=== PATIENT | female | born 1955 | race Caucasian/White ===

== ENCOUNTER 2018-10-15 13:28 | Emergency (ER) | payer OTHER ==
[~2018-10-15] VITALS: Ht 152.4 cm; Wt 69.9 kg
[~2018-10-15 13:28] MED LIST: DICY20TA PO; PHENERGAN25 MG PO; PROTONIX40 MG PO; ZANTAC300 MG PO; ZOFRAN4 MG PO
[2018-10-15] MEDS ORDERED: SYNTHROID200 MCG (13:50)
== END 2018-10-15 21:04 | disposition home or self-care (01) ==
LOC: ER 13:28
DX: K52.89 Other specified noninfective gastroenteritis and colitis (principal)

== ENCOUNTER 2019-07-03 19:23 | Emergency (ER) | payer OTHER ==
[~2019-07-03] VITALS: Ht 154.9 cm; Wt 70.8 kg
[~2019-07-03 19:23] MED LIST changes: +SYNTHROID200 MCG
[2019-07-03] MEDS ORDERED: PEPCID40 MG (20:19)
[2019-07-04] MEDS ORDERED: INTESTINEX680 M1 PO (01:33)
[2019-07-04] MEDS ORDERED: PEPCID40 MG PO (01:33)
[2019-07-04] MEDS ORDERED: SYNTHROID200 MCG PO (01:33)
== END 2019-07-04 01:42 | disposition home or self-care (01) ==
LOC: ER 19:23
DX: K52.9 Noninfective gastroenteritis and colitis, unspecified (principal)

== ENCOUNTER 2020-08-19 10:28 | Emergency (ER) | payer OTHER ==
[~2020-08-19] VITALS: Ht 132.1 cm; Wt 68.0 kg
[~2020-08-19 10:28] MED LIST changes: +INTESTINEX680 M1 PO; +PEPCID40 MG; +PEPCID40 MG PO; +SYNTHROID200 MCG PO
[2020-08-19] MEDS ORDERED: INTESTINEX680 M2 PO (17:23)
[2020-08-19] MEDS ORDERED: PROTONIX20 MG PO (17:23)
[2020-08-19] MEDS ORDERED: CARAFATE1 GM PO (17:23)
[2020-08-19] MEDS ORDERED: PEPCID AC20 MG PO (17:23)
[2020-08-19] MEDS ORDERED: NITROFURANTOIN100 MG PO (17:23)
== END 2020-08-19 18:05 | disposition home or self-care (01) ==
LOC: ER 10:28
DX: K29.60 Other gastritis without bleeding (principal); N39.0 Urinary tract infection, site not specified; R10.13 Epigastric pain; B96.4 Proteus (mirabilis) (morganii) as the cause of diseases classified elsewhere

== ENCOUNTER 2020-08-23 11:08 | Emergency (ER) | payer OTHER ==
[~2020-08-23] VITALS: Ht 149.9 cm; Wt 65.8 kg
[~2020-08-23 11:08] MED LIST changes: +CARAFATE1 GM PO; +INTESTINEX680 M2 PO; +NITROFURANTOIN100 MG PO; +PEPCID AC20 MG PO; +PROTONIX20 MG PO
== END 2020-08-23 21:07 | disposition home or self-care (01) ==
LOC: ER 11:08
DX: N39.0 Urinary tract infection, site not specified (principal); R10.31 Right lower quadrant pain

== ENCOUNTER 2023-05-06 16:36 | Emergency (ER) | payer OTHER ==
[~2023-05-06] VITALS: Ht 165.1 cm; Wt 72.6 kg
== END 2023-05-06 18:31 | disposition home or self-care (01) ==
LOC: ER 16:36
DX: B00.89 Other herpesviral infection (principal); Z88.6 Allergy status to analgesic agent

== ENCOUNTER 2024-03-12 22:38 | Emergency (ER) | payer OTHER ==
[~2024-03-12] VITALS: Ht 165.1 cm; Wt 81.6 kg
[2024-03-13] MEDS ORDERED: KETOROLAC TROMETHAMINE 60 MG VIAL IM STA (01:10)
[2024-03-13] MEDS ORDERED: LORazepam 2 MG/ML VIAL IM STA (01:11)
[2024-03-13 01:47] LABS: HEMATOCRIT 32.9 % (36.0-45.00); MEAN CELL VOLUME 97.3 fL (80.00-100.00); MEAN CORPUSCULAR HGB CONC 33.9 g/dl (32.0-36.0); PLATELET COUNT 180 K/uL (150-450); RED BLOOD COUNT 3.38 M/uL (4.00-6.00)
[2024-03-13 01:48] LABS: HEMOGLOBIN 11.1 g/dL (12.0-15.00); MEAN CORPUSCULAR HEMOGLOBIN 32.8 pg (27.00-32.0)
[2024-03-13 02:14] LABS: ALBUMIN 3.7 gm/dL (3.4-5.0); BILIRUBIN TOTAL 0.44 mg/dL (0.3-1.2); CALCIUM 10.6 mg/dL (8.5-10.1); CREATININE SERUM 0.8 mg/dL (0.55-1.02); GFR 71.76; POTASSIUM 3.16 mEq/L (3.5-5.1); TOTAL PROTEIN 8.7 gm/dL (6.4-8.2)
[2024-03-13] MEDS ORDERED: DIPHENHYDRAMINE HCL 50 MG/ML VIAL 1ML IM ONE (06:00)
[2024-03-13] MEDS ORDERED: HALOPERIDOL LACTATE 5 MG/ML AMPUL IM ONE (06:00)
== END 2024-03-13 13:24 | disposition home or self-care (01) ==
LOC: ER
DX: S10.83XA Contusion of other specified part of neck, initial encounter (principal); Y04.2XXA Assault by strike against or bumped into by another person, initial encounter; Y93.89 Activity, other specified; Y92.018 Other place in single-family (private) house as the place of occurrence of the external cause; S50.11XA Contusion of right forearm, initial encounter; S80.02XA Contusion of left knee, initial encounter; S80.01XA Contusion of right knee, initial encounter; S20.223A Contusion of bilateral back wall of thorax, initial encounter; Z88.8 Allergy status to other drugs, medicaments and biological substances

== ENCOUNTER 2024-06-18 07:34 | Outpatient (CLI) | payer OTHER | END 2024-06-18 07:43 | disposition home or self-care (01) | LOC: MRI 07:34 | PROVIDERS: ATTEND Surgery | DX: K80.41 Calculus of bile duct with cholecystitis, unspecified, with obstruction (principal) | CPT/HCPCS: 74181 ==

== ENCOUNTER 2024-06-25 13:21 | Emergency (ER) | payer OTHER ==
[~2024-06-25] VITALS: Ht 162.6 cm; Wt 61.2 kg
[2024-06-25] MEDS ORDERED: PROTONIX40 M1 PO (13:54)
[2024-06-25] MEDS ORDERED: FAMOTIDINE/PF 20 MG/2 ML VIAL IV ONE (15:00)
[2024-06-25] MEDS ORDERED: FAMOtidine 200mg/20ml VIAL ONE (16:16)
[2024-06-25] MEDS ORDERED: ACETAMINOPHEN 500 MG GEL..CAP PO ONE (16:39)
[2024-06-25] MEDS ORDERED: ACETAMINOPHEN 500 MG GEL..CAP PO STA (16:42)
[2024-06-25 16:45] LABS: HEMATOCRIT 31.6 % (36.0-45.00); HEMOGLOBIN 10.6 g/dL (12.0-15.00); MEAN CELL VOLUME 101.9 fL (80.00-100.00); MEAN CORPUSCULAR HEMOGLOBIN 34.1 pg (27.00-32.0); MEAN CORPUSCULAR HGB CONC 33.5 g/dl (32.0-36.0); PLATELET COUNT 174 K/uL (150-450); RED CELL DISTRIBUTION WIDTH 12.8 % (11.5-14.5)
[2024-06-25] MEDS ORDERED: KETOROLAC TROMETHAMINE 60 MG VIAL IM ONE ×2 (17:30→18:04)
[2024-06-25 17:35] LABS: BILIRUBIN TOTAL 0.52 mg/dL (0.3-1.2); CALCIUM 10.8 mg/dL (8.5-10.1); CREATININE SERUM 0.66 mg/dL (0.55-1.02); GFR 89.6; GLOBULINA 4.6 G/DL (2.4-3.5); POTASSIUM 3.88 mEq/L (3.5-5.1); TOTAL PROTEIN 8.6 gm/dL (6.4-8.2)
[2024-06-25 17:43] LABS: TSH 0.023 uIU/mL (0.358-3.74)
== END 2024-06-25 19:20 | disposition home or self-care (01) ==
LOC: ER 13:22
PROVIDERS: Nurse Practitioner Family
DX: R53.81 Other malaise (principal); E05.90 Thyrotoxicosis, unspecified without thyrotoxic crisis or storm; R51.9 Headache, unspecified; Z20.822 Contact with and (suspected) exposure to COVID-19; E03.8 Other specified hypothyroidism; Z88.5 Allergy status to narcotic agent; Z88.6 Allergy status to analgesic agent

== ENCOUNTER 2024-08-15 09:05 | Outpatient (CLI) | payer OTHER ==
[~2024-08-15 09:05] MED LIST changes: +PROTONIX40 M1 PO
== END 2024-08-15 09:17 | disposition home or self-care (01) ==
LOC: SONOGRAMA 09:05
PROVIDERS: ATTEND Internal Medicine
DX: E04.2 Nontoxic multinodular goiter (principal); C73 Malignant neoplasm of thyroid gland; R22.1 Localized swelling, mass and lump, neck

== ENCOUNTER 2024-08-15 11:11 | Emergency (ER) | payer OTHER ==
[~2024-08-15] VITALS: Ht 152.4 cm; Wt 61.2 kg
[2024-08-15 11:27] VITALS: BP 126/79; O2SAT 96
[2024-08-15] MEDS ORDERED: FAMOTIDINE/PF 20 MG/2 ML VIAL IV PUSH STA ×2 (12:33→14:52)
[2024-08-15] MEDS ORDERED: FAMOTIDINE/PF 20 MG/2 ML VIAL ONE (12:39)
[2024-08-15 13:04] LABS: HEMATOCRIT 28.7 % (36.0-45.00); MEAN CELL VOLUME 98.1 fL (80.00-100.00); MEAN CORPUSCULAR HGB CONC 34.5 g/dl (32.0-36.0); RED BLOOD COUNT 2.93 M/uL (4.00-6.00)
[2024-08-15 13:14] LABS: HEMOGLOBIN 9.9 g/dL (12.0-15.00); MEAN CORPUSCULAR HEMOGLOBIN 33.7 pg (27.00-32.0); PLATELET COUNT 124 K/uL (150-450)
[2024-08-15 13:34] LABS: CALCIUM 10.8 mg/dL (8.5-10.1); CREATININE SERUM 0.87 mg/dL (0.55-1.02); GFR 65.14; POTASSIUM 3.96 mEq/L (3.5-5.1)
[2024-08-15 13:56] LABS: PH,URINE 7.5 (5.0-8.0); URINE APPEARANCE Clear; URINE BILIRRUBIN Negative (NEGATIVE); URINE BLOOD Negative; URINE COLOR Yellow; URINE GLUCOSE Negative (NEGATIVE); URINE KETONE Negative (NEGATIVE); URINE LEUKOCYTE Moderate; URINE NITRATE Negative; URINE PROTEIN Negative (NEGATIVE); URINE UROBILINOGEN 0.2 E.U./dl
[2024-08-15 13:57] LABS: URINE BACTERIA 41.5 uL (0.0-1933); URINE EPITHELIAL CELLS 4.7 uL (0.0-38.8); URINE RBC 2.7 uL (0.0-20.8); URINE WBC 31.9 uL (0.0-23.2)
[2024-08-15 13:58] LABS: URINE CAST 0.15 uL (0.0-1.40)
[2024-08-15] MEDS ORDERED: ORPHENADRINE CITRATE 30 MG/ML AMPUL IM STA (14:53)
[2024-08-15] MEDS ORDERED: ORPHENADRINE CITRATE 30 MG/ML AMPUL ONE (15:03)
== END 2024-08-15 15:08 | disposition home or self-care (01) ==
LOC: ER 11:12
PROVIDERS: General Practice
DX: D61.818 Other pancytopenia (principal); Z88.8 Allergy status to other drugs, medicaments and biological substances

== ENCOUNTER 2024-08-16 07:26 | Emergency (ER) | payer OTHER ==
[~2024-08-16] VITALS: Ht 160 cm; Wt 71.7 kg
[2024-08-16] MEDS ORDERED: 0.9 % SODIUM CHLORIDE 1,000 ML IV SCH (08:30)
[2024-08-16 09:01] LABS: HEMATOCRIT 29.4 % (36.0-45.00); MEAN CORPUSCULAR HEMOGLOBIN 33.5 pg (27.00-32.0); MEAN CORPUSCULAR HGB CONC 34.2 g/dl (32.0-36.0)
[2024-08-16 09:02] LABS: PLATELET COUNT 128 K/uL (150-450)
[2024-08-16] MEDS ORDERED: KETOROLAC TROMETHAMINE 30 MG VIAL ONE (09:09)
[2024-08-16] MEDS ORDERED: KETOROLAC TROMETHAMINE 30 MG VIAL IV ONE (09:15)
[2024-08-16 09:24] LABS: CALCIUM 11.2 mg/dL (8.5-10.1); CREATININE SERUM 0.88 mg/dL (0.55-1.02); GFR 64.29; POTASSIUM 3.57 mEq/L (3.5-5.1)
[2024-08-16 09:37] LABS: URINE APPEARANCE Cloudy; URINE BILIRRUBIN Negative (NEGATIVE); URINE BLOOD Negative; URINE COLOR Yellow; URINE GLUCOSE Negative (NEGATIVE); URINE KETONE Negative (NEGATIVE); URINE LEUKOCYTE Small; URINE NITRATE Negative; URINE PROTEIN Negative (NEGATIVE); URINE UROBILINOGEN 0.2 E.U./dl
[2024-08-16 09:39] LABS: URINE EPITHELIAL CELLS 2.1 uL (0.0-38.8); URINE WBC 9.7 uL (0.0-23.2)
[2024-08-16 09:46] LABS: URINE RBC 1.6 uL (0.0-20.8)
== END 2024-08-16 14:48 | disposition home or self-care (01) ==
LOC: ER 07:26
PROVIDERS: Emergency Medicine
DX: D61.818 Other pancytopenia (principal); R10.9 Unspecified abdominal pain; E03.8 Other specified hypothyroidism; Z88.5 Allergy status to narcotic agent; Z88.6 Allergy status to analgesic agent

== ENCOUNTER 2024-11-15 10:24 | Inpatient (IN) | payer OTHER ==
[~2024-11-15] VITALS: Ht 157.5 cm; Wt 59.0 kg
--- NOTE | 2024-11-15 10:32 | NUR ---
SE RECIBE PTE ALERTA Y ORIENTADA X3 EN AMBULANCIA LA CUAL REFIERE DOLRO ABDOMIANL Y DIAREA DESDE FLORENCIO. PTE CANALIZADA EN BRAZO DERECHOI CON ANGIO #18 CON R/L DE AMBULANCIA. SE MIDEN S/V Y SE UBICA.
[2024-11-15] MEDS ORDERED: FAMOTIDINE/PF 20 MG in 0.9 % SODIUM CHLORIDE 8 ML IV PUSH STA (10:49)
[2024-11-15] MEDS ORDERED: MEPERIDINE HCL 25 MG/ML AMPUL IV ONE (11:00)
--- NOTE | 2024-11-15 11:20 | NUR ---
CANDY CHRISTOPHER EDUCA A PTE SOBRE TX A RECIBIR EN EL AREA LA MISMA REFIERE ENTENDER. CANALIZA PTE Y SE COLOCAN MEDICAMENTOS VIANEY ORDEN MEDICA Y SE EDISON PTE BAJO TX EN LA ESPERA DE RESULTADOS.
[2024-11-15] MEDS ORDERED: 0.9 % SODIUM CHLORIDE 1,000 ML IV SCH ×2 (12:00→19:30)
[2024-11-15 12:22] LABS: URINE APPEARANCE Clear; URINE BILIRRUBIN Negative (NEGATIVE); URINE BLOOD Negative; URINE COLOR Yellow; URINE GLUCOSE Negative (NEGATIVE); URINE KETONE Negative (NEGATIVE); URINE LEUKOCYTE Moderate; URINE NITRATE Negative; URINE PROTEIN Negative (NEGATIVE); URINE UROBILINOGEN 0.2 E.U./dl
[2024-11-15 12:23] LABS: URINE BACTERIA 80.6 uL (0.0-1933); URINE EPITHELIAL CELLS 4.7 uL (0.0-38.8); URINE WBC 20.5 uL (0.0-23.2)
[2024-11-15 12:32] LABS: HEMATOCRIT 23.9 % (36.0-45.00); MEAN CELL VOLUME 101.4 fL (80.00-100.00); MEAN CORPUSCULAR HEMOGLOBIN 34.3 pg (27.00-32.0); MEAN CORPUSCULAR HGB CONC 33.8 g/dl (32.0-36.0); PLATELET COUNT 130 K/uL (150-450); RED BLOOD COUNT 2.36 M/uL (4.00-6.00); RED CELL DISTRIBUTION WIDTH 16.3 % (11.5-14.5)
[2024-11-15 12:33] LABS: URINE RBC 1.6 uL (0.0-20.8)
[2024-11-15 12:33] LABS: HEMOGLOBIN 8.1 g/dL (12.0-15.00)
[2024-11-15 12:45] LABS: CALCIUM 9.2 mg/dL (8.5-10.1); CREATININE SERUM 0.66 mg/dL (0.55-1.02); GFR 89.33; POTASSIUM 3.07 mEq/L (3.5-5.1)
[2024-11-15] MEDS ORDERED: MEPERIDINE HCL/PF 25 MG/ML VIAL IV ONE (15:00)
[2024-11-15] MEDS ORDERED: KETOROLAC TROMETHAMINE 30 MG VIAL IM ONE (18:30)
[2024-11-15] MEDS ORDERED: ORPHENADRINE CITRATE 100 MG TABLET PO SCH (19:36)
[2024-11-15] MEDS ORDERED: ACETAMINOPHEN 500 MG GEL..CAP PO PRN (19:45)
[2024-11-15] MEDS ORDERED: POTASSIUM CHLORIDE 20MEQ/100ML H2O PB IV ONE (19:45)
[2024-11-15 20:27] VITALS: BP 163/79
[2024-11-15] MEDS ORDERED: ONDANSETRON HCL 4 MG in 0.9 % SODIUM CHLORIDE 50 ML IV PRN (21:00)
[2024-11-15 22:23] LABS: INR 1.05; PARTIAL THROMBOPLASTIN TIME 23.4 SECONDS (22.0-34.0); PROTHROMBIN TIME 11.4 SECONDS (9.0-11.5)
[2024-11-15 23:28] VITALS: BP 130/63; O2SAT 99
[2024-11-16] MEDS ORDERED: TRAMADOL HCL 50 MG TABLET PO ONE (02:15)
[2024-11-16 02:50] VITALS: BP 136/72; O2SAT 96
[2024-11-16] MEDS ORDERED: LEVOTHYROXINE SODIUM 125 MCG TABLET PO SCH (06:00)
[2024-11-16] MEDS ORDERED: IRON FUM,PS/FOLIC/BCOMP,C NO.9 1 CAP CAPSULE PO SCH (09:00)
[2024-11-16] MEDS ORDERED: PANTOPRAZOLE SODIUM 40 MG/VIAL VIAL IV SCH (09:00)
[2024-11-16 10:13] VITALS: BP 120/76; O2SAT 95
[2024-11-16] MEDS ORDERED: KETOROLAC TROMETHAMINE 30 MG VIAL IM PRN (10:30)
[2024-11-16] MEDS ORDERED: KETOROLAC TROMETHAMINE 30 MG VIAL IM STA (10:30)
[2024-11-16 16:36] LABS: ob NEGATIVE (NEGATIVE)
[2024-11-16 16:49] LABS: HEMOGLOBIN 10.7 g/dL (12.0-15.00); MEAN CELL VOLUME 98.5 fL (80.00-100.00); MEAN CORPUSCULAR HEMOGLOBIN 32.9 pg (27.00-32.0); MEAN CORPUSCULAR HGB CONC 33.5 g/dl (32.0-36.0); PLATELET COUNT 157 K/uL (150-450); RED BLOOD COUNT 3.25 M/uL (4.00-6.00); RED CELL DISTRIBUTION WIDTH 17.8 % (11.5-14.5)
[2024-11-16 17:53] VITALS: BP 126/72
[2024-11-17 02:20] VITALS: BP 132/72; O2SAT 95
[2024-11-17 08:25] LABS: ALBUMIN 3.5 gm/dL (3.4-5.0); BILIRUBIN TOTAL 0.67 mg/dL (0.3-1.2); CALCIUM 10.4 mg/dL (8.5-10.1); CREATININE SERUM 0.69 mg/dL (0.55-1.02); GFR 84.86; GLOBULINA 3.5 G/DL (2.4-3.5); POTASSIUM 3.92 mEq/L (3.5-5.1)
[2024-11-17 08:47] LABS: HEMATOCRIT 30.8 % (36.0-45.00); HEMOGLOBIN 10.4 g/dL (12.0-15.00); MEAN CELL VOLUME 98.5 fL (80.00-100.00); MEAN CORPUSCULAR HEMOGLOBIN 33.3 pg (27.00-32.0); MEAN CORPUSCULAR HGB CONC 33.9 g/dl (32.0-36.0); PLATELET COUNT 166 K/uL (150-450); RED BLOOD COUNT 3.13 M/uL (4.00-6.00); RED CELL DISTRIBUTION WIDTH 17.8 % (11.5-14.5)
[2024-11-17 09:29] VITALS: BP 150/83; O2SAT 97
== END 2024-11-17 12:25 | disposition home or self-care (01) | DRG 812 ==
LOC: ER 10:24 → MEDJ 21:03
PROVIDERS: Emergency Medicine; General Practice; Internal Medicine; ADMIT Internal Medicine; ATTEND Internal Medicine
PROC: 30233N1 Transfusion of Nonautologous Red Blood Cells into Peripheral Vein, Percutaneous Approach (ICD-10-PCS; principal; 2024-11-16)
DX: D64.9 Anemia, unspecified (principal); K52.89 Other specified noninfective gastroenteritis and colitis; E03.9 Hypothyroidism, unspecified; E87.6 Hypokalemia

== ENCOUNTER 2025-01-17 14:35 | Emergency (ER) | payer OTHER ==
[~2025-01-17] VITALS: Ht 165.1 cm; Wt 56.7 kg
[2025-01-17] MEDS ORDERED: DEXAMETHASONE SODIUM PHOSPHATE 4 MG/ML VIAL ONE (16:21)
[2025-01-17] MEDS ORDERED: KETOROLAC TROMETHAMINE 30 MG VIAL ONE (16:21)
[2025-01-17] MEDS ORDERED: FAMOTIDINE/PF 20 MG/2 ML VIAL ONE (16:22)
[2025-01-17] MEDS ORDERED: DEXAMETHASONE SODIUM PHOSPHATE 4 MG/ML VIAL IV ONE (16:30)
[2025-01-17] MEDS ORDERED: KETOROLAC TROMETHAMINE 30 MG VIAL IV ONE (16:30)
[2025-01-17] MEDS ORDERED: FAMOTIDINE/PF 20 MG/2 ML VIAL IV ONE (16:30)
[2025-01-17 17:09] LABS: URINE APPEARANCE Clear; URINE BILIRRUBIN Negative (NEGATIVE); URINE BLOOD Negative; URINE COLOR Yellow; URINE GLUCOSE Negative (NEGATIVE); URINE KETONE Negative (NEGATIVE); URINE LEUKOCYTE Moderate; URINE NITRATE Negative; URINE PROTEIN Trace (NEGATIVE); URINE UROBILINOGEN 0.2 E.U./dl
[2025-01-17 17:10] LABS: URINE EPITHELIAL CELLS 16.5 uL (0.0-38.8); URINE RBC 3.5 uL (0.0-20.8); URINE WBC 38.5 uL (0.0-23.2)
[2025-01-17 17:14] LABS: HEMATOCRIT 27.8 % (36.0-45.00); HEMOGLOBIN 9.4 g/dL (12.0-15.00); MEAN CORPUSCULAR HEMOGLOBIN 33.3 pg (27.00-32.0); PLATELET COUNT 189 K/uL (150-450); RED BLOOD COUNT 2.84 M/uL (4.00-6.00); RED CELL DISTRIBUTION WIDTH 15.8 % (11.5-14.5)
[2025-01-17 17:14] LABS: URINE CAST 0.14 uL (0.0-1.40)
[2025-01-17 17:17] LABS: ALBUMIN 3.7 gm/dL (3.4-5.0); BILIRUBIN TOTAL 0.71 mg/dL (0.3-1.2); CALCIUM 10.8 mg/dL (8.5-10.1); CREATININE SERUM 0.64 mg/dL (0.55-1.02); GFR 92.56; GLOBULINA 4.4 G/DL (2.4-3.5); POTASSIUM 3.11 mEq/L (3.5-5.1); TOTAL PROTEIN 8.1 gm/dL (6.4-8.2)
[2025-01-17] MEDS ORDERED: NORFLEX100MG PO (18:07)
[2025-01-17] MEDS ORDERED: DICLOFENAC SODI75 MG PO (18:07)
== END 2025-01-17 18:30 ==
LOC: ER 14:38
PROVIDERS: General Practice
DX: G89.11 Acute pain due to trauma (principal); M53.3 Sacrococcygeal disorders, not elsewhere classified; E03.8 Other specified hypothyroidism; Z88.8 Allergy status to other drugs, medicaments and biological substances

== ENCOUNTER → 2025-01-25 | Emergency (ER) | payer OTHER ==
[~2025-01-25] VITALS: Ht 154.9 cm; Wt 56.7 kg
[~2025-01-25] MED LIST changes: +DICLOFENAC SODI75 MG PO; +KETOROLAC TROMETHAMINE 60 MG VIAL IM ONE; +LORazepam 1 MG TABLET PO ONE; +NORFLEX100MG PO; +OxyCODONE HCL/APAP UD (PERCOCET) PO ONE
[2025-01-25 11:58] LABS: HEMATOCRIT 26.7 % (36.0-45.00); HEMOGLOBIN 9.4 g/dL (12.0-15.00); MEAN CELL VOLUME 98.4 fL (80.00-100.00); MEAN CORPUSCULAR HEMOGLOBIN 34.6 pg (27.00-32.0); MEAN CORPUSCULAR HGB CONC 35.2 g/dl (32.0-36.0); PLATELET COUNT 186 K/uL (150-450); RED BLOOD COUNT 2.72 M/uL (4.00-6.00); RED CELL DISTRIBUTION WIDTH 15.4 % (11.5-14.5)
[2025-01-25 13:40] LABS: URINE APPEARANCE Clear; URINE BILIRRUBIN Negative (NEGATIVE); URINE BLOOD Negative; URINE COLOR Yellow; URINE GLUCOSE Negative (NEGATIVE); URINE KETONE Negative (NEGATIVE); URINE LEUKOCYTE Negative; URINE NITRATE Negative; URINE PROTEIN Trace (NEGATIVE); URINE UROBILINOGEN 0.2 E.U./dl
[2025-01-25 13:44] LABS: URINE EPITHELIAL CELLS 2.3 uL (0.0-38.8); URINE RBC 5.1 uL (0.0-20.8); URINE WBC 5.2 uL (0.0-23.2)
== END | disposition home or self-care (01) ==
LOC: ER 09:53
PROVIDERS: Emergency Medicine
DX: M54.50 Low back pain, unspecified (principal); Z88.8 Allergy status to other drugs, medicaments and biological substances
CPT/HCPCS: 72158

== ENCOUNTER → 2025-02-05 | Emergency (ER) | payer OTHER ==
[~2025-02-05] VITALS: Ht 160 cm; Wt 56.7 kg
[~2025-02-05] MED LIST changes: -KETOROLAC TROMETHAMINE 60 MG VIAL IM ONE; -LORazepam 1 MG TABLET PO ONE; -OxyCODONE HCL/APAP UD (PERCOCET) PO ONE
== END | disposition left against medical advice (07) ==
LOC: ER 03:59
DX: Z53.21 Procedure and treatment not carried out due to patient leaving prior to being seen by health care provider (principal)

== ENCOUNTER → 2025-02-22 | Emergency (ER) | payer OTHER | END | disposition left against medical advice (07) | LOC: ER 20:39 | DX: Z53.21 Procedure and treatment not carried out due to patient leaving prior to being seen by health care provider (principal) ==

== ENCOUNTER 2025-03-18 14:14 | Emergency (ER) | payer OTHER ==
[~2025-03-18] VITALS: Ht 154.9 cm; Wt 63.5 kg
[2025-03-18] MEDS ORDERED: FAMOTIDINE/PF 20 MG/2 ML VIAL ONE (16:23)
[2025-03-18] MEDS ORDERED: FAMOtidine 10 MG/ML (4ML VIAL) IV ONE (16:30)
[2025-03-18 16:56] LABS: HEMATOCRIT 30.8 % (36.0-45.00); HEMOGLOBIN 10.4 g/dL (12.0-15.00); MEAN CELL VOLUME 103.2 fL (80.00-100.00); MEAN CORPUSCULAR HEMOGLOBIN 34.8 pg (27.00-32.0); MEAN CORPUSCULAR HGB CONC 33.7 g/dl (32.0-36.0); PLATELET COUNT 206 K/uL (150-450); RED BLOOD COUNT 2.99 M/uL (4.00-6.00); RED CELL DISTRIBUTION WIDTH 14.1 % (11.5-14.5)
[2025-03-18 17:12] LABS: CALCIUM 11.2 mg/dL (8.5-10.1); CREATININE SERUM 0.69 mg/dL (0.55-1.02); GFR 84.86; POTASSIUM 3.56 mEq/L (3.5-5.1)
[2025-03-18] MEDS ORDERED: KETOROLAC TROMETHAMINE 30 MG VIAL IM ONE (17:45)
[2025-03-18] MEDS ORDERED: KETOROLAC TROMETHAMINE 30 MG VIAL ONE (17:55)
== END 2025-03-18 19:15 | disposition home or self-care (01) ==
LOC: ER 14:15
PROVIDERS: General Practice
DX: K29.70 Gastritis, unspecified, without bleeding (principal); M25.561 Pain in right knee; M25.551 Pain in right hip; E03.8 Other specified hypothyroidism; Z88.5 Allergy status to narcotic agent

== ENCOUNTER 2025-03-25 08:19 | Outpatient (CLI) | payer OTHER | END 2025-03-25 08:20 | disposition home or self-care (01) | LOC: NUCLEAR 08:19 | DX: C90.00 Multiple myeloma not having achieved remission (principal) ==

== ENCOUNTER 2025-06-19 09:07 | Outpatient (CLI) | payer OTHER | END 2025-06-19 09:18 | disposition home or self-care (01) | LOC: MRI 09:07 | DX: C90.00 Multiple myeloma not having achieved remission (principal) | CPT/HCPCS: 72158; Q9965 ==

== ENCOUNTER 2025-06-25 16:15 | Emergency (ER) | payer OTHER ==
[~2025-06-25] VITALS: Ht 162.6 cm; Wt 68.0 kg
[2025-06-25] MEDS ORDERED: 0.9 % SODIUM CHLORIDE 1,000 ML IV STA (18:48)
[2025-06-25] MEDS ORDERED: KETOROLAC TROMETHAMINE 30 MG VIAL IV STA (18:50)
[2025-06-25] MEDS ORDERED: ONDANSETRON HCL 2 MG/ML VIAL IV STA (18:52)
[2025-06-25 19:29] LABS: BASO % 0.8 % (0.1-1.2); EOS # 0.10 (0.04-0.54); EOS % 2.6 % (0.7-7.0); LYMPH # 0.93 (1.18-3.74); LYMPH % 24.6 % (19.3-53.1); MEAN PLATELET VOLUME 9.60 fl (9.4-12.4); MONO # 0.50 (0.24-0.82); NEUT # 2.22 (1.56-6.13); NEUT % 58.8 % (34.0-71.1); RED CELL DISTRIBUTION WIDTH 11.9 % (11.6-14.4)
[2025-06-25 19:52] LABS: INR 1.0
[2025-06-25 19:59] LABS: MONO % 13.2 % (4.7-12.5)
[2025-06-25 20:05] LABS: ALT/SGPT 21.0 U/L (12-78); AST/SGOT 10.0 U/L (15-37); BILIRUBIN TOTAL 0.6 mg/dL (0.3-1.2); BUN CREA RATIO 10.0 (7.0-25.0); CREATININE SERUM 0.62 mg/dL (0.55-1.02); GFR 96.01; GLOBULINA 3.1 G/DL (2.4-3.5); GLUCOSE FASTING 91.0 mg/dL (65-100); OSMOLALITY SERUM 286.0 MOSM/KG (275-295)
== END 2025-06-25 22:41 | disposition home or self-care (01) ==
LOC: ER 16:15
DX: K52.1 Toxic gastroenteritis and colitis (principal); T45.1X5A Adverse effect of antineoplastic and immunosuppressive drugs, initial encounter; Y92.89 Other specified places as the place of occurrence of the external cause; Z88.8 Allergy status to other drugs, medicaments and biological substances; C90.00 Multiple myeloma not having achieved remission
CPT/HCPCS: 74176; 96365; 96366; 99283; J1885; J2405; J3490

== ENCOUNTER 2025-07-13 04:30 | Emergency (ER) | payer OTHER ==
[~2025-07-13] VITALS: Ht 160 cm; Wt 56.2 kg
[2025-07-13] MEDS ORDERED: 0.9 % SODIUM CHLORIDE 1,000 ML IV STA (05:09)
[2025-07-13] MEDS ORDERED: KETOROLAC TROMETHAMINE 30 MG VIAL IV STA (05:10)
[2025-07-13] MEDS ORDERED: DEXAMETHASONE SODIUM PHOSPHATE 4 MG/ML VIAL IV STA (05:10)
[2025-07-13] MEDS ORDERED: PROMETHAZINE HCL 50 MG/ML AMPUL IM STA (05:11)
[2025-07-13] MEDS ORDERED: FAMOtidine 10 MG/ML (4ML VIAL) IV PUSH STA (05:23)
[2025-07-13 06:23] LABS: BASO % 0.6 % (0.1-1.2); EOS # 0.12 (0.04-0.54); EOS % 3.5 % (0.7-7.0); LYMPH # 0.66 (1.18-3.74); LYMPH % 19.1 % (19.3-53.1); MEAN PLATELET VOLUME 9.90 fl (9.4-12.4); MONO # 0.51 (0.24-0.82); NEUT # 2.13 (1.56-6.13); NEUT % 61.7 % (34.0-71.1); RED CELL DISTRIBUTION WIDTH 11.5 % (11.6-14.4)
[2025-07-13 06:24] LABS: MONO % 14.8 % (4.7-12.5)
[2025-07-13 06:31] LABS: INR 1.0
[2025-07-13 06:36] LABS: ALT/SGPT 16.0 U/L (12-78); AST/SGOT 13.0 U/L (15-37); BILIRUBIN TOTAL 0.74 mg/dL (0.3-1.2); BUN CREA RATIO 9.0 (7.0-25.0); CREATININE SERUM 0.65 mg/dL (0.55-1.02); GFR 90.91; GLOBULINA 3.3 G/DL (2.4-3.5); GLUCOSE FASTING 92.0 mg/dL (65-100); OSMOLALITY SERUM 280.0 MOSM/KG (275-295)
== END 2025-07-13 08:23 | disposition home or self-care (01) ==
LOC: ER 04:30
DX: C80.1 Malignant (primary) neoplasm, unspecified (principal); Z88.8 Allergy status to other drugs, medicaments and biological substances; I10 Essential (primary) hypertension
CPT/HCPCS: 36415; 96365; 96366; 99282; J1100; J1885; J2250; J3490; J7030

== ENCOUNTER 2025-07-27 02:44 | Emergency (ER) | payer OTHER ==
[~2025-07-27] VITALS: Ht 160 cm; Wt 56.2 kg
[2025-07-27] MEDS ORDERED: FAMOtidine 10 MG/ML (4ML VIAL) IV PUSH STA (04:32)
[2025-07-27] MEDS ORDERED: ONDANSETRON HCL 2 MG/ML VIAL IV STA (04:32)
[2025-07-27] MEDS ORDERED: KETOROLAC TROMETHAMINE 30 MG VIAL IV STA (04:36)
[2025-07-27] MEDS ORDERED: KETOROLAC TROMETHAMINE 30 MG VIAL ONE (04:44)
[2025-07-27] MEDS ORDERED: ONDANSETRON HCL 2 MG/ML VIAL ONE (04:44)
[2025-07-27] MEDS ORDERED: FAMOTIDINE/PF 20 MG/2 ML VIAL ONE ×2 (04:45→12:41)
[2025-07-27] MEDS ORDERED: 0.9 % SODIUM CHLORIDE 250 ML IV SCH (11:45)
[2025-07-27] MEDS ORDERED: FAMOTIDINE/PF 20 MG/2 ML VIAL IV PUSH ONE (12:00)
[2025-07-27] MEDS ORDERED: ONDANSETRON 4 MG TAB.RAPDIS PO ONE ×2 (12:00→12:42)
== END 2025-07-27 14:19 | disposition home or self-care (01) ==
LOC: ER 02:44
DX: M54.41 Lumbago with sciatica, right side (principal); K21.9 Gastro-esophageal reflux disease without esophagitis; Z85.89 Personal history of malignant neoplasm of other organs and systems; Z88.8 Allergy status to other drugs, medicaments and biological substances
CPT/HCPCS: 72100; 96365; 99283; J1885; J2270; J2405; J3490

== ENCOUNTER 2025-08-28 21:49 | Emergency (ER) | payer OTHER ==
[~2025-08-28] VITALS: Ht 160 cm; Wt 57.2 kg
[2025-08-28] MEDS ORDERED: SYNTHROID75 MCG PO (22:01)
[2025-08-28] MEDS ORDERED: ONDANSETRON HCL 2 MG/ML VIAL IV ONE (23:30)
[2025-08-28] MEDS ORDERED: KETOROLAC TROMETHAMINE 30 MG VIAL IU ONE (23:30)
[2025-08-28] MEDS ORDERED: TAMSULOSIN HCL 0.4 MG CAP PO ONE ×2 (23:30→23:31)
[2025-08-28] MEDS ORDERED: 0.9 % SODIUM CHLORIDE 1,000 ML IV ONE (23:30)
[2025-08-28] MEDS ORDERED: FAMOTIDINE/PF 20 MG/2 ML VIAL IV ONE (23:30)
[2025-08-28] MEDS ORDERED: ONDANSETRON HCL 2 MG/ML VIAL ONE (23:31)
[2025-08-28] MEDS ORDERED: KETOROLAC TROMETHAMINE 30 MG VIAL ONE (23:31)
[2025-08-28] MEDS ORDERED: FAMOTIDINE/PF 20 MG/2 ML VIAL ONE (23:32)
[2025-08-29 00:17] LABS: BASO % 0.8 % (0.1-1.2); EOS # 0.12 (0.04-0.54); EOS % 3.0 % (0.7-7.0); LYMPH # 1.14 (1.18-3.74); LYMPH % 28.6 % (19.3-53.1); MEAN PLATELET VOLUME 9.70 fl (9.4-12.4); MONO # 0.64 (0.24-0.82); NEUT # 2.05 (1.56-6.13); NEUT % 51.3 % (34.0-71.1); RED CELL DISTRIBUTION WIDTH 11.9 % (11.6-14.4)
[2025-08-29 00:20] LABS: MONO % 16.0 % (4.7-12.5)
[2025-08-29 00:21] LABS: ERYTHROCYTE SEDIMENTATION RATE 17 mm/hr (0-30)
[2025-08-29 00:33] LABS: ALT/SGPT 23 U/L (12-78); AST/SGOT 13 U/L (15-37); BILIRUBIN TOTAL 0.54 mg/dL (0.3-1.2); BUN CREA RATIO 16 (7.0-25.0); CREATININE SERUM 0.63 mg/dL (0.55-1.02); GFR 94.25; GLOBULINA 2.7 G/DL (2.4-3.5); GLUCOSE FASTING 100 mg/dL (65-100); OSMOLALITY SERUM 288 MOSM/KG (275-295)
[2025-08-29 01:01] LABS: URINE APPEARANCE Clear; URINE BILIRRUBIN Negative (NEGATIVE); URINE BLOOD Negative; URINE COLOR Yellow; URINE GLUCOSE Negative (NEGATIVE); URINE KETONE Negative (NEGATIVE); URINE LEUKOCYTE Moderate; URINE NITRATE Negative; URINE PROTEIN Trace (NEGATIVE); URINE UROBILINOGEN 0.2 E.U./dl
[2025-08-29 01:04] LABS: URINE BACTERIA 61.1 uL (0.0-1933); URINE EPITHELIAL CELLS 11.8 uL (0.0-38.8); URINE RBC 3.8 uL (0.0-20.8); URINE WBC 232.9 uL (0.0-23.2)
[2025-08-29 01:05] LABS: URINE CAST 0.00 uL (0.0-1.40)
[2025-08-29] MEDS ORDERED: CEFTRIAXONE SODIUM 1,000 MG VIAL IV ONE (01:15)
[2025-08-29] MEDS ORDERED: ACETAMINOPHEN 500 MG GEL..CAP PO ONE ×2 (02:30→02:32)
[2025-08-29] MEDS ORDERED: DEXAMETHASONE SODIUM PHOSPHATE 4 MG/ML VIAL IV ONE (02:30)
[2025-08-29] MEDS ORDERED: CEFTRIAXONE SODIUM 1,000 MG VIAL ONE (02:32)
[2025-08-29] MEDS ORDERED: DEXAMETHASONE SODIUM PHOSPHATE 4 MG/ML VIAL ONE (02:32)
[2025-08-29] MEDS ORDERED: ORPHENADRINE CITRATE 30 MG/ML AMPUL ONE (02:45)
[2025-08-29] MEDS ORDERED: BACTRIM DS TAB1 EACH PO (02:52)
[2025-08-29] MEDS ORDERED: KETO10TA2 PO (02:52)
[2025-08-29] MEDS ORDERED: NORFLEX100MG PO (02:53)
[2025-08-29] MEDS ORDERED: ORPHENADRINE CITRATE 30 MG/ML AMPUL IV ONE (03:00)
[2025-08-29 05:32] VITALS: BP 130/70; O2SAT 98
== END 2025-08-29 05:33 | disposition home or self-care (01) ==
LOC: ER 21:49
PROVIDERS: Student in an Organized Health Care Education/Training Program
DX: N39.0 Urinary tract infection, site not specified (principal); E03.8 Other specified hypothyroidism; Z88.8 Allergy status to other drugs, medicaments and biological substances; M54.16 Radiculopathy, lumbar region
CPT/HCPCS: 36415; 74176; 96365; 96366; 99284; J0696; J1885; J2405; J3490; J7030

== ENCOUNTER → 2025-09-16 | Emergency (ER) | payer OTHER ==
[~2025-09-16] VITALS: Ht 160 cm; Wt 56.7 kg
[~2025-09-16] MED LIST changes: +0.9 % SODIUM CHLORIDE 1,000 ML IV ONE; +BACTRIM DS TAB1 EACH PO; +CIPROFLOXACIN IN 5 % DEXTROSE 400 MG/200 ML PIGGYBAG IV ONE; +FAMOTIDINE/PF 20 MG/2 ML VIAL ONE; +FAMOtidine 10 MG/ML (4ML VIAL) IV ONE; +KETO10TA2 PO; +KETOROLAC TROMETHAMINE 30 MG VIAL IV ONE; +KETOROLAC TROMETHAMINE 30 MG VIAL ONE; +SYNTHROID75 MCG PO
[2025-09-16 18:21] LABS: BASO % 0.7 % (0.1-1.2); EOS # 0.14 (0.04-0.54); EOS % 3.1 % (0.7-7.0); LYMPH # 1.07 (1.18-3.74); LYMPH % 23.6 % (19.3-53.1); MEAN PLATELET VOLUME 9.80 fl (9.4-12.4); MONO # 0.46 (0.24-0.82); MONO % 10.2 % (4.7-12.5); NEUT # 2.81 (1.56-6.13); NEUT % 62.0 % (34.0-71.1); RED CELL DISTRIBUTION WIDTH 11.5 % (11.6-14.4)
[2025-09-16 18:55] LABS: COVID-19 AG NEGATIVE (NEGATIVE)
[2025-09-16 18:56] LABS: ALT/SGPT 33.0 U/L (12-78); AST/SGOT 17.0 U/L (15-37); BILIRUBIN TOTAL 0.53 mg/dL (0.3-1.2); BUN CREA RATIO 23.0 (7.0-25.0); CREATININE SERUM 0.53 mg/dL (0.55-1.02); GFR 115.06; GLOBULINA 2.8 G/DL (2.4-3.5); GLUCOSE FASTING 109.0 mg/dL (65-100); OSMOLALITY SERUM 285.0 MOSM/KG (275-295)
[2025-09-16 19:00] LABS: INR 0.98
[2025-09-16 20:14] LABS: URINE APPEARANCE Clear; URINE BILIRRUBIN Negative (NEGATIVE); URINE BLOOD Negative; URINE COLOR Yellow; URINE GLUCOSE Negative (NEGATIVE); URINE KETONE Negative (NEGATIVE); URINE LEUKOCYTE Small; URINE NITRATE Negative; URINE PROTEIN Negative (NEGATIVE); URINE UROBILINOGEN 0.2 E.U./dl
[2025-09-16 20:15] LABS: URINE BACTERIA 38.3 uL (0.0-1933); URINE EPITHELIAL CELLS 11.0 uL (0.0-38.8); URINE WBC 35.1 uL (0.0-23.2)
[2025-09-16 20:18] LABS: URINE CAST 0.00 uL (0.0-1.40); URINE RBC 0.5 uL (0.0-20.8)
== END | disposition left against medical advice (07) ==
LOC: ER 16:13
PROVIDERS: General Practice
DX: R10.9 Unspecified abdominal pain (principal); Z20.822 Contact with and (suspected) exposure to COVID-19; E03.8 Other specified hypothyroidism; Z88.5 Allergy status to narcotic agent
CPT/HCPCS: 36415; 96365; 96366; 99282; J0744; J1885 ×2; J3490; J7030

== ENCOUNTER 2025-09-20 08:48 | Outpatient (CLI) | payer OTHER ==
[~2025-09-20 08:48] MED LIST changes: -0.9 % SODIUM CHLORIDE 1,000 ML IV ONE; -CIPROFLOXACIN IN 5 % DEXTROSE 400 MG/200 ML PIGGYBAG IV ONE; -FAMOTIDINE/PF 20 MG/2 ML VIAL ONE; -FAMOtidine 10 MG/ML (4ML VIAL) IV ONE; -KETOROLAC TROMETHAMINE 30 MG VIAL IV ONE; -KETOROLAC TROMETHAMINE 30 MG VIAL ONE
== END 2025-09-20 08:56 | disposition home or self-care (01) ==
LOC: RAD 08:48
PROVIDERS: ATTEND Specialist
DX: C90.20 Extramedullary plasmacytoma not having achieved remission (principal); C79.51 Secondary malignant neoplasm of bone
CPT/HCPCS: 72148

== ENCOUNTER 2025-09-28 17:42 | Emergency (ER) | payer OTHER ==
[~2025-09-28] VITALS: Ht 160 cm; Wt 56.7 kg
[2025-09-28] MEDS ORDERED: KETOROLAC TROMETHAMINE 60 MG VIAL IM ONE ×2 (18:15→19:05)
[2025-09-28] MEDS ORDERED: ORPHENADRINE CITRATE 30 MG/ML AMPUL IM ONE (18:15)
[2025-09-28] MEDS ORDERED: ORPHENADRINE CITRATE 30 MG/ML AMPUL ONE (19:05)
[2025-09-28] MEDS ORDERED: NORFLEX100MG PO (19:45)
== END 2025-09-28 21:18 | disposition home or self-care (01) ==
LOC: ER 17:42
DX: M54.16 Radiculopathy, lumbar region (principal); M54.50 Low back pain, unspecified; Z88.8 Allergy status to other drugs, medicaments and biological substances; E03.8 Other specified hypothyroidism; C90.00 Multiple myeloma not having achieved remission
CPT/HCPCS: 96372; 99282; J1885; J2360

== ENCOUNTER 2025-11-03 14:12 | Emergency (ER) | payer OTHER ==
[~2025-11-03] VITALS: Ht 160 cm; Wt 56.7 kg
[2025-11-03] MEDS ORDERED: ONDANSETRON HCL 2 MG/ML VIAL ONE (15:27)
[2025-11-03] MEDS ORDERED: KETOROLAC TROMETHAMINE 30 MG VIAL ONE ×2 (15:27→21:51)
[2025-11-03] MEDS ORDERED: FAMOTIDINE/PF 20 MG/2 ML VIAL ONE (15:28)
[2025-11-03] MEDS ORDERED: FAMOtidine 10 MG/ML (4ML VIAL) IV PUSH ONE (15:30)
[2025-11-03] MEDS ORDERED: ONDANSETRON HCL 2 MG/ML VIAL IV ONE (15:30)
[2025-11-03] MEDS ORDERED: KETOROLAC TROMETHAMINE 30 MG VIAL IV ONE (15:30)
[2025-11-03] MEDS ORDERED: 0.9 % SODIUM CHLORIDE 1,000 ML IV SCH (15:30)
[2025-11-03 16:13] LABS: BASO % 0.1 % (0.1-1.2); EOS # 0.26 (0.04-0.54); EOS % 3.4 % (0.7-7.0); LYMPH # 0.39 (1.18-3.74); LYMPH % 5.0 % (19.3-53.1); MEAN PLATELET VOLUME 9.30 fl (9.4-12.4); MONO # 0.33 (0.24-0.82); MONO % 4.3 % (4.7-12.5); NEUT # 6.71 (1.56-6.13); NEUT % 86.8 % (34.0-71.1); RED CELL DISTRIBUTION WIDTH 12.4 % (11.6-14.4)
[2025-11-03 16:41] LABS: ALT/SGPT 19.0 U/L (12-78); AST/SGOT 21.0 U/L (15-37); BILIRUBIN TOTAL 0.55 mg/dL (0.3-1.2); BUN CREA RATIO 8.0 (7.0-25.0); CREATININE SERUM 0.63 mg/dL (0.55-1.02); GFR 93.97; GLOBULINA 3.3 G/DL (2.4-3.5); GLUCOSE FASTING 105.0 mg/dL (65-100); OSMOLALITY SERUM 277.0 MOSM/KG (275-295)
[2025-11-03 17:52] LABS: URINE APPEARANCE Clear; URINE BILIRRUBIN Negative (NEGATIVE); URINE BLOOD Negative; URINE COLOR Yellow; URINE GLUCOSE Negative (NEGATIVE); URINE KETONE Negative (NEGATIVE); URINE LEUKOCYTE Negative; URINE NITRATE Negative; URINE PROTEIN Trace (NEGATIVE); URINE UROBILINOGEN 0.2 E.U./dl
[2025-11-03 17:55] LABS: URINE BACTERIA 28.5 uL (0.0-1933); URINE EPITHELIAL CELLS 1.6 uL (0.0-38.8); URINE RBC 12.3 uL (0.0-20.8)
[2025-11-03 18:02] LABS: URINE CAST 0.00 uL (0.0-1.40); URINE WBC 1.2 uL (0.0-23.2)
[2025-11-03] MEDS ORDERED: DICYCLOMINE HCL 20 MG TABLET PO ONE (19:45)
[2025-11-03] MEDS ORDERED: TRAMADOL HCL 50 MG TABLET PO ONE (19:45)
[2025-11-03] MEDS ORDERED: KETOROLAC TROMETHAMINE 30 MG VIAL IV STA (21:45)
[2025-11-03] MEDS ORDERED: KETO10TA2 PO (22:45)
[2025-11-03] MEDS ORDERED: DICYCLOMINE HCL 10 MG CAPSULE PO ONE (23:23)
== END 2025-11-03 23:37 | disposition home or self-care (01) ==
LOC: ER 14:12
PROVIDERS: General Practice
DX: R10.84 Generalized abdominal pain (principal); E03.8 Other specified hypothyroidism; Z88.6 Allergy status to analgesic agent; C41.4 Malignant neoplasm of pelvic bones, sacrum and coccyx; M54.16 Radiculopathy, lumbar region
CPT/HCPCS: 36415; 74176; 96365; 96366; 99284; J1885; J2405; J3490; J7030